=== PATIENT | female | born 1980 | race Caucasian/White ===

== ENCOUNTER 2017-09-14 11:23 | Emergency (ER) | payer MEDICARE, MEDICAID ==
[~2017-09-14] VITALS: Ht 165.1 cm; Wt 72.6 kg
[2017-09-14] MEDS ORDERED: LOVASTATIN 20 M20 MG PO (11:29)
[2017-09-14] MEDS ORDERED: LEXAPRO 10 MG T10 M2 PO (11:29)
[2017-09-14] MEDS ORDERED: LEVEMIR SUBQ (11:30)
[2017-09-14] MEDS ORDERED: VALIUM5 MG PO (11:30)
[2017-09-14] MEDS ORDERED: TRAMADOL 50 MG50 MG PO (11:30)
[2017-09-14] MEDS ORDERED: FLEXERIL PO (11:30)
[2017-09-14] MEDS ORDERED: NOVOLOG100 UNIT/1 SUBQ (11:30)
[2017-09-14] MEDS ORDERED: QUETIAPINE FUM100 MG PO (11:30)
[2017-09-14 12:01] LABS: HEMATOCRIT 44.3 % (37.0-47.0); MCH 30.2 pg (26.0-34.0); MCHC 33.7 g/dL (28.0-37.0); MCV 89.4 fL (80.0-100.0); MPV 7.4 fl. (7.2-11.1); NUCLEATED RBCS 0 /100WBC; PLATELET COUNT* 311 thou/uL (150-400); RBC 4.96 mil/uL (4.20-5.00); RDW-CV 13.8 % (10.5-14.5)
[2017-09-14 12:02] LABS: URINE BLOOD NEGATIVE (Negative); URINE CLARITY CLEAR; URINE COLOR YELLOW; URINE GLUCOSE-RANDOM 3+ (Negative); URINE LEUKOCYTES-REFLEX NEGATIVE (Negative); URINE NITRITE-REFLEX NEGATIVE (Negative); URINE PROTEIN NEGATIVE (Negative); URINE SPECIFIC GRAVITY 1.015 (1.005-1.030); URINE UROBILINOGEN 0.2 E.U./dl (0.2-1.0)
[2017-09-14 12:09] LABS: ICTOTEST (BILI CONFIRMATORY) Negative (Negative); URINE BILIRUBIN 1+ (Negative); URINE KETONES 3+ (Negative)
[2017-09-14 12:09] LABS: AMP/METHAMP Negative (Negative); BARBITURATES Negative (Negative); BENZODIAZEPINES POSITIVE (Negative); COCAINE Negative (Negative); METHADONE Negative (Negative); OPIATES Negative (Negative); PCP Negative (Negative); THC Negative (Negative)
[2017-09-14 12:10] LABS: ANION GAP 12 mmol/L (7-16); BUN 16 mg/dL (7-18); CHLORIDE 99 mmol/L (98-107); CO2 21 mmol/L (21-32); CREATININE 0.8 mg/dL (0.6-1.3); GLUCOSE 336 mg/dL (70-99); SODIUM 132 mmol/L (136-145)
[2017-09-14 12:14] LABS: ALBUMIN 3.9 g/dL (3.4-5.0); ALKALINE PHOSPHATASE 100 U/L (46-116); LIPASE 65 U/L (73-393); MAGNESIUM 1.7 mg/dL (1.8-2.4); PHOSPHORUS* 3.7 mg/dL (2.5-4.9); SGOT 15 U/L (15-37); SGPT 21 U/L (30-65); TOTAL BILIRUBIN 0.5 mg/dL (<0.1-1.0)
[2017-09-14] MEDS ORDERED: ZOFRAN4 MG PO (12:22)
[2017-09-14] MEDS ORDERED: HYDROCODON-ACE1 EAC7 PO (12:22)
[2017-09-14 12:38] LABS: ABSOLUTE LYMPHOCYTES 1.8 thou/uL (0.8-5.3); ABSOLUTE MONOCYTES 0.3 thou/uL (0.0-1.2); ABSOLUTE NEUTROPHILS 11.9 thou/uL (1.6-8.1); ANISOCYTOSIS 1+; PLATELET ESTIMATE ADEQUATE; POIKILOCYTOSIS 1+
[2017-09-14 12:41] VITALS: BP 123/58
== END 2017-09-14 12:55 | disposition home or self-care (01) ==
LOC: M.ERS 11:23
PROVIDERS: Emergency Medicine
DX: E11.65 Type 2 diabetes mellitus with hyperglycemia (principal); K52.9 Noninfective gastroenteritis and colitis, unspecified; Z79.4 Long term (current) use of insulin

== ENCOUNTER 2017-10-28 20:39 | Emergency (ER) | payer MEDICARE ==
[~2017-10-28] VITALS: Ht 170.2 cm; Wt 75.8 kg
[~2017-10-28 20:39] MED LIST: FLEXERIL PO; HYDROCODON-ACE1 EAC7 PO; LEVEMIR SUBQ; LEXAPRO 10 MG T10 M2 PO; LOVASTATIN 20 M20 MG PO; NOVOLOG100 UNIT/1 SUBQ; QUETIAPINE FUM100 MG PO; TRAMADOL 50 MG50 MG PO; VALIUM5 MG PO; ZOFRAN4 MG PO
[2017-10-28 21:11] LABS: ABSOLUTE BASOPHILS 0.1 thou/uL (0.0-0.2); ABSOLUTE EOSINOPHILS 0.1 thou/uL (0.0-0.7); ABSOLUTE MONOCYTES 0.9 thou/uL (0.0-1.2); ABSOLUTE NEUTROPHILS 7.9 thou/uL (1.6-8.1); BASOPHILS 0.8 %; EOSINOPHILS 0.8 %; HEMATOCRIT 43.3 % (37.0-47.0); HEMOGLOBIN 14.3 gm/dL (12.0-15.0); LYMPHOCYTES 24.8 %; MCH 29.4 pg (26.0-34.0); MCHC 33.1 g/dL (28.0-37.0); MCV 88.9 fL (80.0-100.0); MONOCYTES 7.8 %; MPV 7.4 fl. (7.2-11.1); NUCLEATED RBCS 0 /100WBC; PLATELET COUNT* 439 thou/uL (150-400); POLYS 65.8 %; RBC 4.87 mil/uL (4.20-5.00); RDW-CV 13.5 % (10.5-14.5)
[2017-10-28 21:13] LABS: URINE BILIRUBIN NEGATIVE (Negative); URINE BLOOD NEGATIVE (Negative); URINE CLARITY CLEAR; URINE COLOR YELLOW; URINE GLUCOSE-RANDOM 3+ (Negative); URINE KETONES NEGATIVE (Negative); URINE LEUKOCYTES-REFLEX NEGATIVE (Negative); URINE NITRITE-REFLEX NEGATIVE (Negative); URINE PROTEIN NEGATIVE (Negative); URINE SPECIFIC GRAVITY <= 1.005 (1.005-1.030); URINE UROBILINOGEN 0.2 E.U./dl (0.2-1.0)
[2017-10-28 21:25] LABS: ALBUMIN 3.8 g/dL (3.4-5.0); CALCIUM 9.1 mg/dL (8.5-10.1); CREATININE 0.6 mg/dL (0.6-1.3); POTASSIUM 4.2 mmol/L (3.5-5.1); TOTAL BILIRUBIN 0.2 mg/dL (<0.1-1.0); TOTAL PROTEIN 7.5 g/dL (6.4-8.2)
[2017-10-28 22:23] LABS: AMP/METHAMP Negative (Negative); BARBITURATES Negative (Negative); BENZODIAZEPINES POSITIVE (Negative); COCAINE Negative (Negative); METHADONE Negative (Negative); OPIATES Negative (Negative); PCP Negative (Negative); THC POSITIVE (Negative)
[2017-10-28 22:55] VITALS: BP 118/58
== END 2017-10-28 22:56 | disposition home or self-care (01) ==
LOC: M.ERS 20:39
PROVIDERS: Physician Assistant
DX: E10.65 Type 1 diabetes mellitus with hyperglycemia (principal)